=== PATIENT | male | born 1990 | race Caucasian/White ===

== ENCOUNTER → 2024-05-18 08:43 | Outpatient (CLI) | payer OTHER, SELFPAY ==
[2024-05-18 09:47] LABS: Alanine Aminotransferase 38 IU/L (<50); Albumin 4.2 g/dL (3.5-5.0); Albumin Globulin Ratio 1.7 (1.0-2.8); Alkaline Phosphatase 44 U/L (38-126); Aspartate Aminotransferase 24 IU/L (17-59); BUN Creatinine Ratio 11.4 (6-22); Bilirubin Total 1.1 mg/dL (0.2-1.3); Blood Urea Nitrogen 9 mg/dL (9-20); Calcium 9.6 mg/dL (8.4-10.2); Carbon Dioxide 31 mmol/L (22-32); Chloride 103 mmol/L (98-107); Estimated Glomerular Filt Rate > 60 mL/min (>60); Globulin 2.5 g/dL (1.7-4.1); Glucose 101 mg/dL (70-100); HEMOLYSIS < 15 (0-50); Magnesium 2.1 mg/dL (1.6-2.3); Potassium 4.2 mmol/L (3.4-5.1); Sodium 137 mmol/L (137-145); Total Protein 6.7 g/dL (6.3-8.2)
== END ==
PROVIDERS: Referring Provider Internal Medicine Cardiovascular Disease; Visit Provider Internal Medicine Cardiovascular Disease
DX: R00.2 Palpitations (principal); I49.8 Other specified cardiac arrhythmias; R94.31 Abnormal electrocardiogram [ECG] [EKG]; I44.0 Atrioventricular block, first degree
CPT/HCPCS: 36415; 80053; 83735; 84443

== ENCOUNTER → 2024-05-25 07:41 | Outpatient (CLI) | payer OTHER, SELFPAY ==
--- NOTE | 2024-05-25 07:43 | DI.ECHO.S_ITS ---
[facility] : : [address] : : [place] : : [id number] : : Phone: [phone] Echocardiogram Report + + :Name: ZINA ZAPATA Study Date: 05/25/2024 Height: 72 in : :Hospital ReadingLocation: Weight: 215 lb : : Gender: Male BSA: 2.2 m2 : :: 1990 Age: 33 yrs BP: 122/68 mmHg: :Reason For Study: PALPITATIONS : :Ordering Physician: JOSÉ, : :ILYA Performed By: Kacy Johnson : :Referring: ILYA KUMAR : + + Interpretation Summary The left ventricle is normal in size. The left ventricular ejection fraction is normal. The ejection fraction is estimated to be 60-65%. The right ventricle is normal in size and function. There is mild mitral regurgitation. The aortic valve is bicuspid. The aortic valve is mildly calcified. The peak aortic velocity is 2.9 m/sec. The aortic valve mean gradient is 18 mmHg. The calculated aortic valve area is 1.8 cm2. There is mild aortic stenosis. The IVC is of normal diameter and collapses greater than 50% with a sniff. This suggests a low right atrial pressure of 3 mm Hg. Normal aortic root and ascending aorta as well as aortic arch. Procedure: A two-dimensional transthoracic echocardiogram with color flow and Doppler was performed. The study quality was technically adequate. There is no prior echocardiogram noted for this patient. The patient was in sinus bradycardia with heart rates between 45-55 bpm during the exam. Left Ventricle: The left ventricle is normal in size. Left ventricular wall thickness is mildly increased. There is no thrombus. A false chord is noted (normal variant). The ejection fraction is estimated to be 60-65%. The left ventricular ejection fraction is normal. There are no focal wall motion abnormalities. Diastolic parameters suggest probable normal left ventricular diastolic function and normal filling pressures. Right Ventricle: The right ventricle is normal in size and function. Atria: The left atrial size is normal. Right atrial size is normal. There is no Doppler evidence for an interatrial shunt. Mitral Valve: The mitral valve leaflets appear to open well. The mitral valve is normal. There is mild mitral regurgitation. Aortic Valve: The aortic valve is bicuspid. The aortic valve is mildly calcified. The peak aortic velocity is 2.9 m/sec. The aortic valve mean gradient is 18 mmHg. The calculated aortic valve area is 1.8 cm2. There is mild aortic stenosis. There is trace aortic regurgitation. Tricuspid Valve: The tricuspid valve leaflets are thin and pliable. Pulmonary artery pressures cannot be estimated because of the lack of a measurable TR jet velocity. There is trace tricuspid regurgitation. Pulmonic Valve: The pulmonic valve leaflets are thin and pliable; valve motion is normal. There is a trace or physiologic amount of pulmonic regurgitation. Great Vessels: The aortic root is normal size. The dimensions of the ascending aorta are normal. The aortic arch is normal in size. The IVC is of normal diameter and collapses greater than 50% with a sniff. This suggests a low right atrial pressure of 3 mm Hg. Pericardium/ Pleura There is no pericardial effusion. There is no pleural effusion. MMode/2D Measurements & Calculations LVIDd: 5.0 cm LVOT diam: 2.5 cm LVIDs: 2.9 cm Ao root diam: 3.6 cm FS: 42.6 % asc Aorta Diam: 2.4 cm IVSd: 1.1 cm Ao Arch Diam (Prox Trans): 2.3 cm LVPWd: 1.0 cm LV tyler. diameter/BSA (cm/m^2): 2.3 LV sys. diameter/BSA (cm/m^2): 1.3 LA A2 area: 20.8 cm2 RA long axis: 5.0 cm LA A4 area: 15.4 cm2 RA area: 14.7 cm2 LA length (vol): 5.2 cm RA vol: 37.0 ml LA vol: 52.3 ml RA : 16.8 ml/m2 LA vol index: 23.8 ml/m2 IVC diam: 1.7 cm RVD1 (basal): 3.7 cm RVD2 (mid): 3.4 cm TAPSE: 2.2 cm Doppler Measurements & Calculations Ao V2 max: 298.6 cm/sec LVOT Max Romie: 105.1 cm/sec Ao V2 mean: 182.8 cm/sec LV V1 max P.4 mmHg Ao max P.3 mmHg LV V1 VTI: 21.7 cm Ao mean P.1 mmHg ISAIAH(I,D): 2.0 cm2 Ao V2 VTI: 55.1 cm ISAIAH(V,D): 1.8 cm2 sev ratio: 0.39 ISAIAH indexed to BSA (cm^2/m^2): 0.91 MV E max romie: 118.4 cm/sec PA V2 max: 116.6 cm/sec MV A max romie: 46.4 cm/sec PA V2 mean: 85.0 cm/sec MV E/A: 2.6 PA mean P.2 mmHg Med Peak E' Romie: 12.3 cm/sec PA pr(Accel): 8.8 mmHg E/E' med: 9.7 Lat Peak E' Romie: 11.8 cm/sec E/E' lat: 10.0 E/e' average: 9.8 MV dec time: 0.17 sec SV(LVOT): 110.3 ml Reading Physician:05:32 PM
--- NOTE | 2024-05-25 18:10 | DI.NM.S_ITS ---
DATE OF SERVICE: 05/25/2024 EXERCISE TREADMILL STRESS TEST PROCEDURE PERFORMED: Exercise treadmill stress test without imaging. ORDERING PROVIDER: Kale Thorpe MD. INDICATIONS: The patient is a 33-year-old male with a history of palpitations and an abnormal ECG with reported accelerated junctional rhythm. FINDINGS: 1. The patient was able to exercise for 10 minutes, 17 seconds, suggesting moderately reduced exercise capacity with an GENESIS of +24%, achieving 12.8 METS. 2. He had an abnormal, blunted heart rate response with a resting heart rate of 48 BPM increasing to a maximum of 160 BPM (56% of his predicted maximum), but had a normal blood pressure response. 3. His resting ECG shows sinus rhythm with a marked first-degree AV block with a AL interval of 320 ms with blocked PACs but normal ST segments. With stress, the blocked PACs become more frequent, becoming a bigeminal pattern. At 6 minutes of exercise, he developed an ectopic rhythm with inverted P waves, still with blocked PACs in a bigeminal pattern, but then had ectopic P waves with 3:1 AV conduction and development of an atypical LBBB at peak exercise with associated ST and T-wave abnormalities, accompanied by dyspnea, weakness, and pallor, but no chest discomfort. The study was terminated and QRS and ST segments returned to the baseline morphology within 1 minute of recovery with probable resumption of sinus rhythm but a probable junctional rhythm at 60 BPM with AV dissociation, subsequently followed by conducted sinus P waves with blocked PACs in a bigeminal pattern and resolution of his symptoms. IMPRESSION: 1. Normal exercise treadmill stress test for ischemia. 2. Moderately reduced exercise capacity, likely due to significant atrial arrhythmias with an ectopic atrial rhythm and blocked PACs, culminating with a probable junctional rhythm with AV dissociation and development of an atypical LBBB, suggestive of significant conduction disease. He had no angina or concerning tachyarrhythmias. Tera Corrigan - RICHARDSON/hannah/MCKENZIE doc#: [id number]/job#: [id number] dd: 05/25/2024 17:47:00 dt: 05/25/2024 17:56:00 DICTATING MD/COPIES TO: Ulises Caruso MD; Kale Thorpe MD COPIES MNE: JOSTIN;
== END ==
LOC: NUCM 07:42
PROVIDERS: PCP Family Medicine; Referring Provider Internal Medicine Cardiovascular Disease; Visit Provider Internal Medicine Cardiovascular Disease
DX: Q23.81 Bicuspid aortic valve (principal); I08.0 Rheumatic disorders of both mitral and aortic valves; R00.2 Palpitations
CPT/HCPCS: 93017; 93306

== ENCOUNTER → 2024-11-14 10:34 | Outpatient (CLI) | payer OTHER, SELFPAY ==
[2024-11-14 12:15] LABS: Add Manual Diff / Slide Review NO; Hematocrit 48.9 % (41-53); Hemoglobin 17.2 g/dL (13.5-17.5); Lymphocytes Absolute Auto 1600 /uL (1100-4500); Mean Corpuscular HGB Conc 35.1 % (30-36); Mean Corpuscular Hemoglobin 32.7 PG (26-34); Mean Corpuscular Volume 93.2 fL (80-100); Platelet Count 207 X10^3/uL (150-400)
[2024-11-14 15:43] LABS: Blood Urea Nitrogen 9 mg/dL (9-20); Calcium 9.2 mg/dL (8.4-10.2); Carbon Dioxide 24 mmol/L (22-32); Chloride 105 mmol/L (98-107); Estimated Glomerular Filt Rate > 60 mL/min (>60); Glucose 86 mg/dL (70-99); HEMOLYSIS < 15 (0-50); Potassium 4.4 mmol/L (3.4-5.1); Sodium 138 mmol/L (137-145)
== END ==
PROVIDERS: PCP Family Medicine; Referring Provider Family Medicine; Visit Provider Internal Medicine Cardiovascular Disease
DX: I44.1 Atrioventricular block, second degree (principal)
CPT/HCPCS: 36415; 80048; 85025